=== PATIENT | male | born 1935 | race Caucasian/White ===

== ENCOUNTER 2022-08-19 11:43 | Outpatient (CLI) | payer MEDICARE | END 2022-08-19 11:44 | disposition critical access hospital (66) | LOC: EMS 11:43 | DX: R41.0 Disorientation, unspecified (principal); R26.81 Unsteadiness on feet; M54.9 Dorsalgia, unspecified; Z91.81 History of falling | CPT/HCPCS: A0425; A0429 ==

== ENCOUNTER 2022-08-19 12:09 | Emergency (ER) | payer MEDICARE ==
--- NOTE | 2022-08-19 12:27 | ED Physician Documentation ---
History of Present Illness - Stated complaint Stated Complaint: AMS - Additonal information Additional information: 86-year-old male was brought in by EMS for reported altered mental status. The patient is very hard of hearing and questions need to be redirected multiple times. However per she thought that he was slurring his words around 10 AM. He was last "normal" before bed last night. She called her daughter who then summoned EMS. Patient has a history of previous myocardial infarction also has a history of hypertension and prostate concerns. Meds: Plavix, finasteride, lisinopril, Flomax, calcitriol, as needed baclofen Ancillary history from the is that her fell about 2 to 3 weeks ago. He reports back pain. The patient just reports that he has back pain. On presentation to the emergency department he is alert and well-appearing. He is nonfocal though again the NIHSS was difficult to complete due to very hard of hearing. Review of Systems Unable to obtain: Other (Per EMS and patient) Constitutional: denies: Fever, Chills Cardiac: denies: Chest pain / pressure, Palpitations Respiratory: denies: Dyspnea, Cough GI: reports: Reviewed and negative : reports: Reviewed and negative Skin: reports: Reviewed and negative Musculoskeletal: reports: Reviewed and negative Neurologic: reports: Difficulty speaking Psychiatric: reports: Reviewed and negative PD PAST MEDICAL HISTORY - Present Medications Home Medications: Ambulatory Orders Medication Instructions Recorded Confirmed Clopidogrel [Plavix] 75 mg PO DAILY 08/19/22 08/19/22 Finasteride [Proscar] 5 mg PO DAILY 08/19/22 08/19/22 Lisinopril [Zestril] 10 mg PO DAILY 08/19/22 08/19/22 Tamsulosin [Flomax] 0.4 mg PO DAILY 08/19/22 08/19/22 calcitrioL [Rocaltrol] 0.25 mcg PO DAILY 08/19/22 08/19/22 - Allergies Allergies/Adverse Reactions: Allergies Allergy/AdvReac Type Severity Reaction Status Date / Time No Known Drug Allergies Allergy Verified 08/19/22 13:10 PD ED PE NORMAL - General General: No: Alert and oriented X 3 (Confused. 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 Eye Opening: Spontaneous Motor: Obeys Commands Verbal: Oriented GCS Score: 15 Results - Vitals Vitals: Vital Signs - 24 hr 08/19/22 08/19/22 12:53 14:56 Temperature 35.9 C L Heart Rate 71 86 Respiratory 18 21 Rate Blood Pressure 175/83 H 205/101 H O2 Saturation 100 100 Oxygen O2 Source Room air - EKG (time done) 1415 Rate: Rate (enter#) (118) Rhythm: Atrial fibrillation Compare to prior EKG: Other (Due to baseline artifact EKG was difficult to interpret but does appear to be atrial fibrillation given irregularity.) - Labs Labs: Laboratory Tests 08/19/22 08/19/22 08/19/22 12:27 12:27 12:27 WBC 6.2 RBC 3.03 L Hgb 9.2 L Hct 29.4 L MCV 97.0 H MCH 30.4 MCHC 31.3 L RDW 14.0 Plt Count 110 L MPV 9.4 Neut # (Auto) 4.0 Lymph # (Auto) 1.4 L [place] # (Auto) 0.7 Eos # (Auto) 0.1 Baso # (Auto) 0.0 Absolute Nucleated RBC 0.00 Nucleated RBC % 0.0 PT 12.3 INR 1.1 Sodium 140 Potassium 4.4 Chloride 108 Carbon Dioxide 24 Anion Gap 8.0 BUN 39 H Creatinine 1.9 H Estimated GFR (MDRD) 34 L Glucose 122 H Calcium 8.8 Total Bilirubin 1.3 H AST 18 ALT 15 Alkaline Phosphatase 68 Total Protein 5.8 L Albumin 3.1 L Globulin 2.7 Albumin/Globulin Ratio 1.1 Lipase 28 TSH Thyroxine (T4) Urine Color Urine Clarity Urine pH Ur Specific [place] Urine Protein Urine Glucose (UA) Urine Ketones Urine Occult Blood Urine Nitrite Urine Bilirubin Urine Urobilinogen Ur Leukocyte Esterase Ur Microscopic Review Urine Culture Comments 08/19/22 08/19/22 12:27 14:50 WBC RBC Hgb Hct MCV MCH MCHC RDW Plt Count MPV Neut # (Auto) Lymph # (Auto) [place] # (Auto) Eos # (Auto) Baso # (Auto) Absolute Nucleated RBC Nucleated RBC % PT INR Sodium Potassium Chloride Carbon Dioxide Anion Gap BUN Creatinine Estimated GFR (MDRD) Glucose Calcium Total Bilirubin AST ALT Alkaline Phosphatase Total Protein Albumin Globulin Albumin/Globulin Ratio Lipase TSH 1.17 Thyroxine (T4) 13.51 H Urine Color YELLOW Urine Clarity CLEAR Urine pH 6.5 Ur Specific [place] 1.010 Urine Protein NEGATIVE Urine Glucose (UA) NEGATIVE Urine Ketones NEGATIVE Urine Occult Blood TRACE-INTA Urine Nitrite NEGATIVE Urine Bilirubin NEGATIVE Urine Urobilinogen 0.2 (NORMAL) Ur Leukocyte Esterase NEGATIVE Ur Microscopic Review NOT INDICATED Urine Culture Comments NOT INDICATED - Rads (name of study) cxr Radiology: Final report received (Evaluation limited by patient rotation and low lung volumes. No acute abnormality identified in the chest) angio neck Radiology: Final report received (Mild to moderate atherosclerotic disease involving bilateral carotid arteries. No significant stenosis or aneurysm seen. Mild atherosclerotic disease of bilateral vertebral arteries. Asymmetrical enlargement of the right thyroid lobe with heterogeneous enhancement suggestive of nodular goiter) angio head Radiology: Final report received (No CT evidence of acute intracranial abnormalities. Age-related volume loss. Mild to moderate atherosclerotic disease in distal intracranial portions of bilateral carotid arteries. Poorly visualized A1 segment of anterior cerebral artery suggestive of chronic occlusion versus congenital process. ) MRI head Radiology: Final report received (Extensive motion artifact. No obvious abnormalities suspicious for infarct today. Age-related volume loss moderate to severe small vessel ischemic change. Old focal right posterior temporal occipital infarct) PD Medical Decision Making - ED course Complexity details: reviewed old records, reviewed results, re-evaluated patient, considered differential, d/w patient, d/w family ED course: This is an 86-year-old male that was brought to the emergency department for evaluation of altered mental status. Reportedly he is new to [facility] having moved from [facility] recently. His states this morning she noticed that he was having some slurring of the words and as his daughter reports word salad. He was last known to be behaving normally at 10 PM last night. The family does suspect that this gentleman is beginning to develop lauren ntia though recently his health has been well. He did have a fall about a week ago. On presentation to the emergency department the patient had no obvious focal neurodeficits and he had no slurred speech. He was however confused to time. He kept repeating that the month was November though he may have thought I was asking when he was born as he is quite hard of hearing. His NIHSS was positive only for weakness in both of the lower extremities which I believe is more deconditioning than a focal process. Here in the emergency department he does have an irregular heart rate the EKG was difficult to interpret due to baseline artifact but it does appear to be atrial fibrillation (though rate controlled). Echo is not available at [facility] until Monday. I have evaluated his CBC and electrolytes and do note a modest anemia with a hemoglobin of 9.9. I am able to review the labs from his healthcare provider in [facility] and see that in February 2011 he had a hemoglobin of 12. His is unsure when his last colonoscopy was. I also see that recently he was referred to a cured meats supervisor and he had a BNP of 849 in February of 2022. Today he has a BUN and creatinine of 39 and 1.9. Also in review of the labs obtained in [facility] in February his BUN was 47 and creatinine 1.7. This likely indicates no significant change. He had reported back pain and a lumbar CT does show an L1 transverse process fracture with associated paravertebral hematoma. In addition his TSH is normal but his free T4 is elevated at 14 though just mildly. The CT angio of his neck does indicate a thyroid goiter though this is not likely the cause of his altered mental status and stroke-like symptoms. I did obtain a CT angio of the head and neck with no significant intracranial st enosis lesions or aneurysms seen. 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 This is likely chronic and not causative of symptoms today. On reevaluation the patient continued to have no slurred speech but he was expressing word salad and the decision was made to obtain an MRI. This was degraded by motion artifact but no acute infarct is seen today though remote infarcts in the temporal occipital lobes were noted. I have requested consultation with telestroke neurologist Dr. Vuong To mill operator helper in evaluation and decision making for anticoagulation as well as further management of his strokelike symptoms. He does make the recommendation to continue with the Plavix. The patient is not a candidate for thrombolysis as her last known well time was more than 4 and half hours ago. Although the patient does have atrial fibrillation and we do have concern for stroke associated with this. We need to identify the cause of his declining H&H before starting him on anticoagulation or dual antiplatelet therapy. The CTs of the head show that the patient has had both cerebellar and occipital strokes at some time in the past, which was confirmed on MRI today. I have spent lengthy amount of time at the bedside with the patient, his daughter and granddaughter. I thoroughly discussed the laboratory and imaging findings. They will continue to follow with PCP for referral and evaluation of worsening anemia limiting her ability to add anticoagulation. He will continue to follow with cardiology for the echocardiogram which is indicated. I have encouraged them to discuss end-of-life decisions. At this time he remains a full code and is discharged home in serious but stable condition Departure - Departure Clinical Impression: Thyroid goiter, Elevated serum free T4 level, History of CVA (cerebrovascular accident), Stroke-like symptoms Atrial fibrillation Qualifiers: Atrial fibrillation type: unspecified Qualified Code(s): I48.91 - Unspecified a trial fibrillation Anemia Qualifiers: Anemia type: unspecified type Qualified Code(s): D64.9 - Anemia, unspecified Condition: Serious Record reviewed to determine appropriate education?: Yes Comments: Refugio came to the emergency department today for changes in his speech and behaviors. It does appear that he is having strokes. This may be due to the Atrial fibrillation which we have noted him to be in today. The CTs that we did of his head and neck show significant atherosclerosis. They also show signs of old stroke within the cerebellum of his brain as well as the occipital region. The MRI showed an old temporal occipital infarct. He was evaluated by a neurologist who makes the recommendation for him to continue on the Plavix. Ideally he would be placed on anticoagulation in the setting of atrial fibrillation but because his hemoglobin has dropped at least 3 g over the last few months it is important to discuss determine where his bleeding is coming from. This should be discussed with his primary care doctor at the [facility]. He likely needs a colonoscopy or an EGD to determine a source of bleeding. It is very important that he continue with the follow-up the cured meats supervisor recommended for an echocardiogram. With his atrial fibrillation he may be developing some heart failure though his lungs appear clear today and his oxygen levels are normal. There was an incidental finding made on the CT scan of his neck that shows a thyroid goiter. His TSH level was normal today and his T4 level was just slightly elevated. He should have a thyroid ultrasound completed as an outpatient and again this needs to be discussed with his primary care doctor The lumbar CT does show an L1 transverse process fracture. This is likely from one of his falls last week. There is no specific medical management needed for it though it can be uncomfortable. He should always walk with a walker. I recommend Tylenol 650 mg with food 2-3 times a day. Salonpas lidocaine patches over this region of his back can also be helpful. I encourage you to discuss as a family as well as with his primary doctor your long-term goals of care. It would be important to discuss if you would want life-saving interventions such as CPR or intubation. But as his health declines it may also be important to discuss longer-term care options such as palliative care focusing on comfort over life prolonging measures NIHSS - Time Time: 12:20 - Level of Consciousness Level of consciousness: (0) Alert, Keenly responsive LOC Questions: (1) Answers one Q correctly LOC Commands: (0) Performs both correctly - Gaze Best Gaze: (0) Normal - Visual Visual: (0) No loss - Facial Palsy Facial Palsy: (0) Normal, symmetrical movement - Motor Arms (both separate) Motor Arm (right): (0) No drift Motor Arm (left): (0) No drift - Motor Legs (both separate) Motor Leg (right): (1) Drift Motor Leg (left): (1) Drift - Limb Ataxia Limb Ataxia: (0) Absent - Sensory Sensory: (0) Normal - Best Language Best Language: (0) No aphasia - Dysarthria Dysarthria: (0) Normal - Extinction and Inattention (formally neg Extinction and inattention: (0) No abnormality (Drift in bilateral lower extremities may simply be motor weakness and deconditioning as it is equal on both sides) - Total Score/Results Total Score/Result: 3
[2022-08-19] MEDS ORDERED: iohexoL-300 100 ML VIAL ONE (12:30)
[2022-08-19 12:41] LABS: BASOPHILS % (AUTO) 0.3 %; EOSINOPHILS # (AUTO) 0.1 10^3/uL (0.0-0.7); EOSINOPHILS % (AUTO) 2.1 %; HCT - HEMATOCRIT 29.4 % (42.0-52.0); HGB - HEMOGLOBIN 9.2 g/dL (14.0-18.0); LYMPHOCYTES # (AUTO) 1.4 10^3/uL (1.5-3.5); LYMPHOCYTES % (AUTO) 22.2 %; MEAN CORPUSCULAR HEMOGLOBIN 30.4 pg (27.0-31.0); MEAN CORPUSCULAR HGB CONC 31.3 g/dL (32.0-36.0); MEAN PLATELET VOLUME 9.4 fL (7.4-11.4); MONOCYTES # (AUTO) 0.7 10^3/uL (0.0-1.0); MONOCYTES % (AUTO) 11.1 %; NEUTROPHILS % (AUTO) 63.8 %; PLT - PLATELET COUNT 110 10^3/uL (130-450); RED BLOOD COUNT 3.03 10^6/uL (4.70-6.10); WHITE BLOOD COUNT 6.2 x10^3/uL (4.8-10.8)
--- NOTE | 2022-08-19 12:45 | XRAY Report ---
PROCEDURE: Chest 1 View X-Ray INDICATIONS: Chest Pain TECHNIQUE: One view of the chest was acquired. COMPARISON: None. FINDINGS: Surgical changes and devices: Sternotomy wires Lungs and pleura: Lung volumes are low. No dense consolidation or pleural effusions. Mediastinum: Film is rotated. Heart size is normal. Bones and chest wall: No suspicious bony lesions. Overlying soft tissues appear unremarkable. IMPRESSION: Evaluation is limited by patient rotation and low lung volumes. No acute abnormality identified in th e chest. Reviewed by: Juan Carlos Valdez MD on 08/19/2022 11:43 AM [facility] Approved by: Juan Carlos Valdez MD on 08/19/2022 11:43 AM [facility] Station ID: [id number]
[2022-08-19 12:48] LABS: INR 1.1 (0.8-1.2); PT - PROTHROMBIN TIME 12.3 secs (9.9-12.6)
[2022-08-19 12:50] LABS: ALBUMIN 3.1 g/dL (3.2-5.5); ALBUMIN/GLOBULIN RATIO 1.1 (1.0-2.2); BILIRUBIN,TOTAL 1.3 mg/dL (0.2-1.0); CALCIUM 8.8 mg/dL (8.5-10.3); CREATININE 1.9 mg/dL (0.6-1.2); POTASSIUM 4.4 mmol/L (3.5-5.0); TOTAL PROTEIN 5.8 g/dL (6.7-8.2)
[2022-08-19] MEDS ORDERED: SODIUM CHLORIDE 0.9% 1,000 ML IV STA (12:56)
[2022-08-19] MEDS ORDERED: iohexoL-300 100 ML VIAL IVP ONE (13:44)
--- NOTE | 2022-08-19 13:54 | CT Report ---
PROCEDURE: LUMBAR SPINE WO INDICATIONS: pain after fall TECHNIQUE: Noncontrast 3 mm thick sections acquired from the T12 level to the sacrum. Sagittal and coronal refo rmats were constructed. For radiation dose reduction, the following was used: automated exposure co ntrol, adjustment of mA and/or kV according to patient size. COMPARISON: None. FINDINGS: Image quality: Good Bones: Mild to moderate multilevel spondylosis, with multiple Schmorl's nodes and disc space height l oss, particularly at L5-S1. Trace anterolisthesis of L4 on L5. Vertebral body heights are well-maintained. Mildly displaced right transverse process fracture of L1. Soft tissues: 5.8 x 2.9 cm right paravertebral hematoma at the level of T12-L1. Incidentally noted abdominal aortic aneurysm measuring at least 4 5 cm. Bilateral atrophic kidneys. IMPRESSION: Right L1 transverse process fracture and paravertebral hematoma. No vertebral body fracture. Moderate spondylotic changes. Incidentally noted abdominal aortic aneurysm measuring at least 4.5 cm. Reviewed by: Juan Carlos Valdez MD on 08/19/2022 12:52 PM [facility] Approved by: Juan Carlos Valdez MD on 08/19/2022 12:52 PM [facility] Station ID: [id number]
--- NOTE | 2022-08-19 13:58 | CT Report ---
PROCEDURE: ANGIO NECK W INDICATIONS: slurred words CONTRAST: 80ml omni 300 TECHNIQUE: After the administration of intravenous contrast, 1.5 mm axial sections acquired from the aortic arch to the [place] of [place]. Coronal 3-D maximum intensity projection (MIP) and/or volume rendering ref ormats were then performed. For radiation dose reduction, the following was used: automated exposur e control, adjustment of mA and/or kV according to patient size. COMPARISON: None. FINDINGS: Image quality: Excellent. Carotid system: Moderate amount of atherosclerotic calcifications are noted involving aortic arch. T he great vessels demonstrate a conventional anatomy as they arise from the aortic arch. The origins of the common carotid arteries appear patent. The common carotid arteries demonstrate normal caliber s and courses. The bifurcation regions appear normal bilaterally. Mild to moderate amount of athero sclerotic calcifications are noted at carotid bulb and origin of bilateral internal carotid arteries without hemodynamically significant stenosis or aneurysm. Mild to moderate amount of atherosclerotic calcifications also seen involving distal intracranial portion of bilateral internal carotid arteries . Posterior circulation: The origins of the vertebral arteries appear patent. The more superior porti ons of the vertebral arteries demonstrate normal course and caliber. They join to form a normal appe aring basilar artery. Soft tissues: Median sternotomy wires are seen. Visualized neck soft tissues demonstrate no suspicio us abnormalities. Asymmetrically enlarged right thyroid lobe is noted facial heterogeneous contrast enhancement extending to superior anterior mediastinum. Small foci of calcifications within right thy roid lobe are also noted.. Bones: No suspicious bony lesions. Visualized cervical spine appears normally aligned. IMPRESSION: 1. Mild to moderate atherosclerotic disease involving bilateral carotid arteries as above. No hemodyn amically significant stenosis or aneurysm is seen. 2. Mild atherosclerotic disease in bilateral vertebral arteries. No hemodynamically significant steno sis or aneurysm is seen in bilateral vertebral arteries. 3. Asymmetrically enlarged right thyroid lobe with heterogeneous enhancement and internal calcificati ons suggestive of nodular goiter suggest clinical correlation. The estimate of stenosis included in the report of the imaging study was calculated using the NASCET method CLINICAL RECOMMENDATION STATEMENTS: In patients <35 years with an ITN detected on CT, MRI, or extrathyroidal ultrasound, the Committee re commends further evaluation with dedicated thyroid ultrasound if the nodule is "e1 cm and has no susp icious imaging features, and if the patient has normal life expectancy. In patients "e35 years with an ITN detected on CT, MRI, or extrathyroidal ultrasound, the Committee r ecommends further evaluation with dedicated thyroid ultrasound if the nodule is "e1.5 cm and has no s uspicious imaging features, and if the patient has normal life expectancy. (ACR, 2014) Reviewed by: Emmett Harman MD on 08/19/2022 1:57 PM PST Approved by: Emmett Harman MD on 08/19/2022 1:57 PM PST Station ID: [id number]
--- NOTE | 2022-08-19 14:07 | CT Report ---
PROCEDURE: ANGIO HEAD W/WO INDICATIONS: slurred words CONTRAST: 80ml omni 300 TECHNIQUE: Precontrast 4.5 mm thick angled axial sections acquired from the foramen magnum to the vertex. Afte r the administration of intravenous contrast, 1 mm thick sections acquired through the [place] of [place] is. Postcontrast 4.5 mm thick sections then re-acquired from the foramen magnum to the vertex. 3-di mensional fxfdotb-fpjrqrsnq-esauyzekgz (MIP) and/or volume rendering reformats were acquired of the c entral intracranial vasculature. For radiation dose reduction, the following was used: automated ex posure control, adjustment of mA and/or kV according to patient size. COMPARISON: None FINDINGS: Image quality: Excellent. Anterior circulation: Atherosclerotic calcifications are noted in bilateral distal intracranial porti on of internal carotid arteries without hemodynamically significant stenosis. There is nonvisualizati on of A1 segment of right anterior cerebral artery with normal contrast opacification of left anterio r cerebral artery more distal branches of right anterior cerebral artery supplied from anterior commu nicating artery. The flow within the middle cerebral arteries is normal and symmetric. The anterior communicating artery is seen. No aneurysms are seen. Posterior circulation: Atherosclerotic calcifications are seen involving distal intra-articular porti on of bilateral vertebral arteries without hemodynamically significant stenosis. The vertebral arteri es join to form a normal appearing basilar artery. Flow within the posterior cerebral arteries is no rmal and symmetric. No aneurysms are seen. CSF spaces: Ventricles are normal in size and shape. Basal cisterns are patent. No extra-axial flu id collections. Brain: No midline shift. Moderate cerebral and cerebellar atrophy is seen. Extensive periventricular and deep white matter hypodensities are noted suggestive of chronic small vessel ischemic changes. N o intracranial bleeds or masses. Ramos-white matter interface appears intact. Skull and face: Calvarium and facial bones appear intact, without suspicious lesions. Sinuses: Visualized sinuses and mastoids are clear. IMPRESSION: 1. No CT evidence of acute acute intracranial abnormalities. 2. Age-related volume loss and moderate periventricular and deep white matter chronic small vessel is chemic changes. 3. Mild to moderate amount of atherosclerotic disease in distal intracranial portion of bilateral int ernal carotid arteries without hemodynamically significant stenosis or aneurysm. 4. Poorly visualized right A1 segment of anterior cerebral arteries suggestive of chronic occlusion v ersus congenital process. More distal branches of right anterior cerebral artery are supplied from th e left side via anterior communicating artery. No hemodynamically significant stenosis or aneurysm is seen in rest of the anterior cerebral arteries. 5. No hemodynamically significant stenosis or aneurysm is seen in rest of the intracranial circulatio n. Reviewed by: Emmett Harman MD on 08/19/2022 2:05 PM PST Approved by: Emmett Harman MD on 08/19/2022 2:05 PM PST Station ID: [id number]
[2022-08-19 14:38] LABS: T4 (THYROXINE) 13.51 ug/dL (6.09-12.23)
[2022-08-19 14:42] LABS: THYROID STIMULATING HORMONE 1.17 uIU/mL (0.34-5.60)
[2022-08-19 14:58] LABS: BILIRUBIN,URINE NEGATIVE (NEGATIVE); GLUCOSE, URINE (UA) NEGATIVE (NEGATIVE); KETONES,URINE (UA) NEGATIVE (NEGATIVE); LEUKOCYTE ESTERASE, URINE NEGATIVE (NEGATIVE); NITRITE,URINE NEGATIVE (NEGATIVE); OCCULT BLOOD,URINE TRACE-INTA (NEGATIVE); PH,URINE 6.5 PH (5.0-7.5); PROTEIN,URINE NEGATIVE (NEGATIVE); UROBILINOGEN,URINE 0.2 (NORMAL) E.U./dL (NORMAL)
[2022-08-19 15:04] LABS: CLARITY,URINE CLEAR (CLEAR)
[2022-08-19] MEDS ORDERED: ASPIRIN CHEW 81 MG TABLET PO STA (15:11)
--- NOTE | 2022-08-19 17:35 | MRI Report ---
PROCEDURE: BRAIN WO INDICATIONS: TIA like events TECHNIQUE: Noncontrast axial T1 spin echo, axial T2 fast spin echo, sagittal and axial FLAIR, coronal T2 fast sp in echo, axial gradient echo, axial diffusion and ADC through the brain. COMPARISON: None. FINDINGS: Image quality: Extensive patient motion artifact.. CSF Spaces: Basal cisterns are patent. No extra-axial fluid collections. Ventricles are normal in size and shape. Brain: No intracranial masses or hemorrhage. Ramos/white matter interface is normal. Extensive patie nt motion artifact. Age-related volume loss, moderate to severe small vessel ischemic change, old foc al right temporal occipital infarct. Brainstem appears normal. Diffusion-weighted images demonstrate obvious acute ischemic insult. No chronic ischemic insults. Normal intravascular flow voids are pr esent. Skull and face: Calvarium has normal marrow signal. Orbits appear normal. Sinuses: Sinuses and mastoids are clear. IMPRESSION: 1. There is extensive patient motion artifact. 2. No obvious diffusion weighted abnormalities which are suspicious for infarct. However, small acute infarct may be missed in this patient. 3. Age-related volume loss, moderate to severe small vessel ischemic change, old focal right posterio r temporo-occipital infarct. Reviewed by: Paolo Ortiz MD on 08/19/2022 5:34 PM PST Approved by: Paolo Ortiz MD on 08/19/2022 5:34 PM PST Station ID: [id number]
[2022-08-19 18:36] VITALS: BP 161/133
== END 2022-08-19 18:35 | disposition home or self-care (01) ==
LOC: ED 12:09
DX: R47.81 Slurred speech (principal); R47.02 Dysphasia; R41.0 Disorientation, unspecified; I48.91 Unspecified atrial fibrillation; D64.9 Anemia, unspecified; E04.9 Nontoxic goiter, unspecified; R94.6 Abnormal results of thyroid function studies; M54.9 Dorsalgia, unspecified; M48.56XA Collapsed vertebra, not elsewhere classified, lumbar region, initial encounter for fracture; S30.0XXA Contusion of lower back and pelvis, initial encounter; W19.XXXA Unspecified fall, initial encounter; H91.90 Unspecified hearing loss, unspecified ear; R29.898 Other symptoms and signs involving the musculoskeletal system; Z86.73 Personal history of transient ischemic attack (TIA), and cerebral infarction without residual deficits; I25.2 Old myocardial infarction; Z79.02 Long term (current) use of antithrombotics/antiplatelets
CPT/HCPCS: 36415; 51701; 70496; 70498; 70551; 71045; 72131; 80053; 81003; 83690; 84436; 84443; 85025; 85610; 93005; 96360; 99284; 99285; A9270; Q9967; 81001; 87086

== ENCOUNTER 2022-12-14 17:01 | Outpatient (CLI) | payer MEDICARE | END 2022-12-14 17:02 | disposition EMS.NT | LOC: EMS 17:01 | DX: S51.011A Laceration without foreign body of right elbow, initial encounter (principal); W18.39XA Other fall on same level, initial encounter; Y92.003 Bedroom of unspecified non-institutional (private) residence as the place of occurrence of the external cause; Z79.01 Long term (current) use of anticoagulants ==

== ENCOUNTER 2023-01-28 09:13 | Outpatient (CLI) | payer MEDICARE | END 2023-01-28 09:14 | disposition EMS.NT | LOC: EMS 09:13 | DX: S51.012A Laceration without foreign body of left elbow, initial encounter (principal); W18.30XA Fall on same level, unspecified, initial encounter; Y92.007 Garden or yard of unspecified non-institutional (private) residence as the place of occurrence of the external cause ==

== ENCOUNTER 2023-01-30 08:00 | Outpatient (CLI) | payer MEDICARE ==
[2023-01-30 15:15] LABS: BILIRUBIN,URINE NEGATIVE (NEGATIVE); GLUCOSE, URINE (UA) NEGATIVE (NEGATIVE); KETONES,URINE (UA) NEGATIVE (NEGATIVE); LEUKOCYTE ESTERASE, URINE SMALL (NEGATIVE); NITRITE,URINE POSITIVE (NEGATIVE); OCCULT BLOOD,URINE SMALL (NEGATIVE); PH,URINE 7.5 PH (5.0-7.5); PROTEIN,URINE 100 mg/dL (NEGATIVE); UROBILINOGEN,URINE 0.2 (NORMAL) E.U./dL (NORMAL)
[2023-01-30 15:40] LABS: BACTERIA,URINE Many /HPF (None Seen); CLARITY,URINE CLOUDY (CLEAR); RBC,URINE TNTC /HPF (0-5); SQUAMOUS EPITHELIAL CELL,UR RARE Squamous (<= Few); WBC CLUMPS,URINE PRESENT; WBC,URINE >25 /HPF (0-3)
== END 2023-01-30 23:59 | disposition home or self-care (01) ==
LOC: LAB.R 08:00
PROVIDERS: ATTEND Family Medicine
DX: N39.0 Urinary tract infection, site not specified (principal)
CPT/HCPCS: 81001; 87077; 87086

== ENCOUNTER 2023-02-09 02:11 | Outpatient (CLI) | payer MEDICARE | END 2023-02-09 23:59 | disposition EMS.NT | LOC: EMS 02:11 | DX: R41.0 Disorientation, unspecified (principal) ==

== ENCOUNTER 2023-02-10 12:38 | Outpatient (CLI) | payer MEDICARE | END 2023-02-10 12:39 | disposition short-term general hospital (02) | LOC: EMS 12:38 | DX: S06.9X9A Unspecified intracranial injury with loss of consciousness of unspecified duration, initial encounter (principal); S00.83XA Contusion of other part of head, initial encounter; R06.89 Other abnormalities of breathing; W06.XXXA Fall from bed, initial encounter; Y92.003 Bedroom of unspecified non-institutional (private) residence as the place of occurrence of the external cause; Z79.01 Long term (current) use of anticoagulants | CPT/HCPCS: A0425; A0429 ==